=== PATIENT | male | born 2000 | race African-American/Black ===

== ENCOUNTER 2018-06-23 18:43 | Emergency (ER) | payer OTHER ==
[~2018-06-23] VITALS: Ht 180.3 cm; Wt 65.9 kg
[2018-06-23 18:57] VITALS: TEMP 97.8
[2018-06-23 19:42] LABS: BASO % 0.3 % (0.0-2.0); EOS # 0.2 (0.0-0.7); EOS % 2.1 % (0-4.0); GRAN # 4.5 (1.4-6.5); GRAN % 63.6 % (42.2-75.2); HEMATOCRIT 49.7 % (36.0-47.0); HEMOGLOBIN 16.5 g/dl (12.5-16.1); LYMPH # 1.5 (1.2-3.4); LYMPH % 21.8 % (20.0-51.0); MEAN CELL VOLUME 83 fl (80.0-95.0); MEAN CORPUSCULAR HEMOGLOBIN 28 pg (26.0-32.0); MEAN CORPUSCULAR HGB CONC 33 g/dl (33.0-37.0); MEAN PLATELET VOLUME 10.5 fl (7.4-10.4); MONO # 0.9 (0.1-0.6); MONO % 12.1 % (1.7-9.3); PLATELET COUNT 210 K/mm3 (130-400); RED BLOOD COUNT 5.97 M/mm3 (4.20-5.60); REDCELL DISTRIBUTION WIDTH-CV 13.2 % (11.5-14.5)
[2018-06-23 19:47] LABS: ALBUMIN 4.6 gm/dL (3.5-5.0); BILIRUBIN,TOTAL 1.1 mg/dL (0.0-1.0); CALCIUM 9.5 mg/dL (8.4-10.2); CREATININE, serum 0.91 mg/dL (0.66-1.25); POTASSIUM 3.6 mmol/L (3.4-5.0)
[2018-06-23] MEDS ORDERED: PHENERGAN 25 TA25 MG PO (20:30)
[2018-06-23] MEDS ORDERED: NEXIUM 20MG20 MG PO (20:30)
[2018-06-23 20:45] VITALS: BP 115/82; PULSE 60
== END 2018-06-23 20:47 | disposition home or self-care (01) ==
LOC: COL.ER 18:43
PROVIDERS: Emergency Medicine
DX: R10.12 Left upper quadrant pain (principal); R10.13 Epigastric pain
CPT/HCPCS: C9113

== ENCOUNTER 2018-07-08 19:43 | Emergency (ER) | payer OTHER ==
[~2018-07-08] VITALS: Ht 180.3 cm; Wt 63.6 kg
[~2018-07-08 19:43] MED LIST: NEXIUM 20MG20 MG PO; PHENERGAN 25 TA25 MG PO
[2018-07-08 19:44] VITALS: BP 127/59; PULSE 104; TEMP 97.5
== END 2018-07-08 20:45 | disposition home or self-care (01) ==
LOC: COL.ER 19:43
DX: J02.9 Acute pharyngitis, unspecified (principal)

== ENCOUNTER 2018-07-15 03:36 | Emergency (ER) | payer OTHER ==
[~2018-07-15] VITALS: Ht 180.3 cm; Wt 63.6 kg
[2018-07-15 03:39] VITALS: TEMP 99.1
[2018-07-15] MEDS ORDERED: EPIPEN 2-PAK1 MG/ML IM (04:01)
[2018-07-15] MEDS ORDERED: MEDROL 4MG DOSPA4 MG PO (04:01)
[2018-07-15] MEDS ORDERED: NEXIUM 20MG20 MG PO (04:15)
[2018-07-15 05:20] VITALS: BP 118/75; PULSE 81
== END 2018-07-15 05:20 | disposition home or self-care (01) ==
LOC: COL.ER 03:36
DX: T36.0X5A Adverse effect of penicillins, initial encounter (principal); L50.9 Urticaria, unspecified
CPT/HCPCS: J0171; J1200; J7512